=== PATIENT | female | born 1990 | race Caucasian/White ===

== ENCOUNTER → 2016-12-14 | Outpatient (CLI) | payer SELFPAY ==
[2016-12-14 15:47] LABS: HEMOGLOBIN 14.5 g/dL (12.0-16.0); RED BLOOD COUNT 4.62 10^6/uL (4.20-5.40)
[2016-12-14 15:48] LABS: BASOPHILS % (AUTO) 0.5 % (0-1); EOSINOPHILS % (AUTO) 0.4 % (0-8); HEMATOCRIT 42.6 % (37.0-47.0); MEAN CORPUSCULAR HEMOGLOBIN 31.4 PG (27-31); MEAN CORPUSCULAR VOLUME 92.2 FL (81-99); MEAN PLATELET VOLUME 8.8 FL (7.4-12.2); MONOCYTES # (AUTO) 0.74 10*3/UL (0.3-0.8); MONOCYTES % (AUTO) 9.8 % (5-15); NEUTROPHILS # (AUTO) 4.56 10*3/UL; NEUTROPHILS % (AUTO) 60.2 % (50-80)
[2016-12-14 15:49] LABS: BASOPHILS # (AUTO) 0.04 10*3/UL; EOSINOPHILS # (AUTO) 0.03 10*3/UL; PLATELET MORPHOLOGY COMMENT NORMAL MORPHOLOGY (NORM); RBC MORPHOLOGY COMMENT NORMAL MORPHOLOGY (NORM); WBC MORPHOLOGY COMMENT NORMAL MORPHOLOGY (NORM)
[2016-12-14 15:51] LABS: BLOOD UREA NITROGEN 16 mg/dL (7-22); CALCIUM 9.4 mg/dL (8.7-10.7); EST GLOMERULAR FILTRATION > 60 (>60 ml/min/1.73m(2)); SERUM ALBUMIN 4.6 g/dL (3.5-4.8)
== END ==
LOC: MOB LAB 15:17
PROVIDERS: ATTEND Physician Assistant Medical
DX: N92.6 Irregular menstruation, unspecified (principal); R53.83 Other fatigue; E04.9 Nontoxic goiter, unspecified
CPT/HCPCS: 36415; 80053; 84443; 85025

== ENCOUNTER → 2016-12-22 | Outpatient (CLI) | payer SELFPAY ==
--- NOTE | 2016-12-23 09:00 | DI ---
US PELVIC COMPLETE (NON OB),12/22/2016 10:56 AM: Clinical History: Metrorrhagia Previous Exam: None at this facility. Findings: Multiple transabdominal grayscale and color Doppler sonographic images are obtained through the pelvi s demonstrating a uterus measuring 5.7 x 3.4 x 3.0 cm with an endometrial stripe measuring 4 mm. The right ovary measures 4.1 x 3.8 x 3.4 cm with a normal sonographic appearance and normal Doppler f low. The left ovary measures 3.8 x 2.2 x 2.3 cm also with normal Doppler flow. There is a large 3.5 x 3.8 x 3.2 cm maturing follicle within the right ovary. This appears to represent a simple cyst. Impression: Normal pelvic ultrasound for age. 3.5 cm simple cyst within the right adnexa is within normal limits for patient's age. No further foll owup is necessary.
== END ==
LOC: US 10:51
PROVIDERS: ATTEND Physician Assistant Medical
DX: N92.1 Excessive and frequent menstruation with irregular cycle (principal)
CPT/HCPCS: 76856